=== PATIENT | female | born 1985 ===

== ENCOUNTER → 2024-04-28 | Outpatient (CLI) | payer OTHER, SELFPAY ==
[2024-04-28 15:42] LABS: Coccid Serology, CF (UCD)* See Sep Rpt
== END | disposition home or self-care (01) ==
LOC: COPL 15:16
PROVIDERS: PCP Nurse Practitioner; Referring Provider Nurse Practitioner; Visit Provider Nurse Practitioner
DX: B38.2 Pulmonary coccidioidomycosis, unspecified (principal)
CPT/HCPCS: 86171